=== PATIENT | female | born 1995 | race Caucasian/White ===

== ENCOUNTER 2021-02-28 05:25 | Inpatient (IN) | payer OTHER ==
[~2021-02-28] VITALS: Ht 160 cm; Wt 64.4 kg
[2021-02-28] MEDS ORDERED: PRENATAL VITAM1 EACH PO (06:06)
--- NOTE | 2021-03-01 10:56 | PR ---
[facility] [address] [place], [place] [address] Signed PP Progress Notes Datetime Report Generated by CPMerline: 03/01/2021 10:56 SUBJECTIVE: [id number] Pain: Within Normal Limits Nausea/Vomiting: Denies Flatus: No Bowel Movement: Yes Vital Signs: [id number] Vital Signs: Reviewed; Within Normal Limits EXAM: Ongoing Cardiovascular: Normal Respiratory: Normal Abdomen/Uterus: Normal Lochia: Normal Vulva/Perineum: Normal Extremities: Normal Progress: Normal Exam Comments: NAD, standing and walking around RRR No dyspnea abd SNTND FFBU Extremities without edema, neg Reny's BL IMPRESSION/PLAN/PROCEDURES: [id number] Impression: Normal Progression Plan: Continue Present Management; Discharge Progress Notes: PPD#1 s/p MIOL for FGR Doing well , pain well controlled with orals Ambulating, voiding, tolerating regular diet, + BM, hgb 12 Requesting DC to home at 24h PP, boarder status if baby required to stay longer Signing Physician: Colten Christianson DO Copies: ~ *Electronically Signed* 03/01/21 1056 COLTEN CHRISTIANSON DO PATIENT NAME: JOURDAN FLORES PROGRESS NOTE DATE OF : [birth year] PHYSICIAN: COLTEN CHRISTIANSON #: [id number] REPORT IS CONFIDENTIAL AND NOT TO BE RELEASED WITHOUT AUTHORIZATION
--- NOTE | 2021-03-03 16:41 | PATH ---
[facility] [address] [place], [place] [address] Signed SPECIMEN(S): A PLACENTA, 3RD TRIMESTER SPECIMEN SOURCE: A. PLACENTA, 3RD TRIMESTER CLINICAL HISTORY: Mother's age: 25. OB history: A0. Gestational age: 38.2. score: 8/9. Length of umbilical cord at delivery: N/A. Rh negative (Rhogam yes). Maternal serologies: Rubella immune, GBS positive. Specific issues of concern: Growth restriction. FINAL PATHOLOGIC DIAGNOSIS: Placenta, third trimester: - Iraheta placenta, small for stated gestational age of 38 weeks, 2 days. - Umbilical cord: Three-vessel umbilical cord with no histopathologic abnormality. - membranes: No histopathologic abnormality. - Placental disc: Chorionic villi with mature villous morphology, intervillous thrombohematomas (8 mm in greatest dimension). NAL:cml:C2NR MICROSCOPIC EXAMINATION: Histologic sections of all submitted blocks are examined by light microscopy. These findings, together with the gross examination, support the pathologic diagnosis. GROSS DESCRIPTION: The specimen, labeled "MW, placenta," is received fresh and placed in formalin and consists of iraheta discoid placenta with the following parameters: Umbilical cord: Insertion eccentric-3.9 cm from the margin, measurement 12.1 x 0.9 cm; trivascular. Also in the container is a detached, 18.2 x 1.0 cm segment of cord. Cord coiling index (per 10 cm): One. Lesions: Not grossly identified. Membranes: Insertion site: Marginal, bower/translucent, rupture site grossly indeterminate. Intact. Other: Not grossly identified. Chorionic Plate: Normal radiating vascular pattern, blue-purple and shiny. Lesions: Not grossly identified. Other: Not grossly identified. Maternal Surface: Normal cotyledons, intact. Lesions: The maternal surface has multiple areas of dark brown adherent blood clot from less than 0.1 up to 2.1 cm in greatest dimension and comprising approximately 5% of the surface. PATIENT NAME: JOURDAN FLORSE PATHOLOGY DATE OF : 89 REPORT #: [id number] PHYSICIAN: PERLA PATHOLOGY PCP: NO PRIMARY CARE PHYSICIAN REPORT IS CONFIDENTIAL AND NOT TO BE RELEASED WITHOUT AUTHORIZATION [facility] [address] [place], [place] [address] Signed Measurement: 15.7 x 13.8 x 2.4 cm. Weight (trimmed): 304 g Cut Surface: Maroon and spongy. Lesions: Multiple bower to dark red areas of consolidation from less than 0.1 up to 0.5 cm in greatest dimension and comprising less than 5% of the disc. Basal plate fibrin: 0.1 cm in thickness. Other Findings: Not grossly identified. Cassette Summary: (A1) membranes and umbilical cord (A2) central section of placenta including parenchymal consolidation (A3) eccentric section of placenta (A4) eccentric section of placenta including parenchymal consolidation AI (under the direct supervision of a pathologist) The Gross Description was prepared using a voice recognition system. The report was reviewed for accuracy; however, sound-alike word errors, addition and/or deletions may occur. If there is any question about this report, please contact Client Services. PERFORMING LABORATORY: The technical component was performed by [employer], [address] [place] [id number] (Electrical Maintenance Man: Savannah Shannon MD; CLIA# [id number]). Professional interpretation was performed by [employer], [facility], [address] [place] [place] [address] (CLIA# [id number]). Diagnostician: Belén Man MD Pathologist Electronically Signed 03/03/2021 Copies: ~ PATIENT NAME: JOURDAN FLORES PATHOLOGY DATE OF : 95 REPORT #: [id number] PHYSICIAN: PERLA JIMENEZ PCP: NO PRIMARY CARE PHYSICIAN REPORT IS CONFIDENTIAL AND NOT TO BE RELEASED WITHOUT AUTHORIZATION
== END 2021-03-01 16:59 | disposition home or self-care (01) | DRG 806 ==
LOC: FBC 05:25
PROVIDERS: ADMIT Obstetrics & Gynecology; ATTEND Obstetrics & Gynecology
PROC: 10E0XZZ Delivery of Products of Conception, External Approach (ICD-10-PCS; principal; 2021-02-28)
PROC: 0W8NXZZ Division of Female Perineum, External Approach (ICD-10-PCS; 2021-02-28)
PROC: 10907ZC Drainage of Amniotic Fluid, Therapeutic from Products of Conception, Via Natural or Artificial Opening (ICD-10-PCS; 2021-02-28)
PROC: 3E0P7VZ Introduction of Hormone into Female Reproductive, Via Natural or Artificial Opening (ICD-10-PCS; 2021-02-28)
PROC: 00HU33Z Insertion of Infusion Device into Spinal Canal, Percutaneous Approach (ICD-10-PCS; 2021-02-28)
PROC: 3E0R3BZ Introduction of Anesthetic Agent into Spinal Canal, Percutaneous Approach (ICD-10-PCS; 2021-02-28)
DX: O36.5930 Maternal care for other known or suspected poor fetal growth, third trimester, not applicable or unspecified (principal); O99.324 Drug use complicating childbirth; Z37.0 Single live birth; O99.824 Streptococcus B carrier state complicating childbirth; Z20.822 Contact with and (suspected) exposure to COVID-19; O76 Abnormality in fetal heart rate and rhythm complicating labor and delivery; Z3A.38 38 weeks gestation of pregnancy; O28.2 Abnormal cytological finding on antenatal screening of mother; F12.90 Cannabis use, unspecified, uncomplicated; Z87.891 Personal history of nicotine dependence; Z86.19 Personal history of other infectious and parasitic diseases
CPT/HCPCS: 01960; 82803; 85027; 88307; C9803; J2540; J2795; J3010; J7121; U0003